=== PATIENT | female | born 1945 | race Two or more races ===

== ENCOUNTER 2019-07-26 11:53 | Outpatient (CLI) | payer OTHER ==
[~2019-07-26 11:53] MED LIST: ASA81 MG PO; COZAAR25 MG PO; ENALAPRIL MALEA10 MG NGT; NORVASC5 MG PO; PULMICORT1 MG/2 ML IH; SINGULAIR10 MG PO; TIMOLOL MALEATE5 M1 OP; VISTARIL50 MG PO; ZALATAN; [UNRECOGNIZED DRUG - OTHER] PO
== END 2019-07-26 15:10 | disposition home or self-care (01) ==
LOC: SONOGRAMA 11:53
DX: N20.0 Calculus of kidney (principal); N81.2 Incomplete uterovaginal prolapse